=== PATIENT | female | born 1985 | race Caucasian/White ===

== ENCOUNTER 2021-05-04 16:16 | Outpatient (CLI) | payer OTHER, SELFPAY ==
[2021-05-04 16:52] VITALS: BP 113/71; PULSE 74
== END 2021-05-04 16:59 | disposition home or self-care (01) ==
LOC: ANHOBOP 16:55
PROVIDERS: Visit Provider Obstetrics & Gynecology
DX: O41.8X90 Other specified disorders of amniotic fluid and membranes, unspecified trimester, not applicable or unspecified (principal)
CPT/HCPCS: 59025; 84112

== ENCOUNTER 2021-05-23 14:02 | Inpatient (IN) | payer OTHER, SELFPAY ==
[2021-05-23] VITALS (29 sets, daily range): BP systolic 111–138; BP diastolic 56–85; PULSE 53–143; TEMP 35.9–36.8; BMI 30.3
--- NOTE | 2021-05-23 14:45 | LDADM ---
This patient, Carol Sadler, was admitted to Labor/Delivery/Recovery 105 on 05/23/21 at 14:02. Plans for labor, pain management and were discussed with patient. Patient/family oriented to hospital policies and general routines including ID bracelet, bed and alarms, visiting hours, pain management, procedures, bathroom and other care routines, personal items, smoking policy, room service/diet and guest tray routines, security routines, and visiting hours. Patient/Family are encouraged to report perceived risks to care and to ask questions if they do not understand what they are told or what they should do. See OBIX for further documentation.
[2021-05-23] MEDS: OXYTOCIN 30 UNITS/NS 500 ML 30 UNITS/500 ML BAG IV CONT (15:13)
[2021-05-23] MEDS: LACTATED RINGERS 1,000 ML 125 ML IV CONT ×2 (15:14→19:54)
[2021-05-23] MEDS: AMPICILLIN 2 GM/NS 100 ML 2 GM/100 ML BAG IVPB (15:15)
[2021-05-23 15:16] LABS: Basophils Percent Auto 0.2 % (0.2-1.2); Eosinophils Absolute Auto 0.1 K/mm3 (0-0.3); Eosinophils Percent Auto 0.6 % (0-4.4); Hematocrit 36.4 % (37.0-47.0); Hemoglobin 12.2 g/dL (12.0-15.0); Immature Granulocyte Absolute 0.05 K/mm3 (0.00-0.031); Immature Granulocyte Percent A 0.4 % (0-0.5); Lymphocytes Absolute Auto 1.79 K/mm3 (0.9-3.2); Lymphocytes Percent Auto 14.3 % (18.3-44.2); Mean Corpuscular HGB Conc 33.5 g/dl (32-36); Mean Corpuscular Hemoglobin 29.3 pg (26-34); Mean Corpuscular Volume 87.5 fl (80-100); Mean Platelet Volume 10.7 fl (7.4-10.4); Monocytes Absolute Auto 0.7 K/mm3 (0.1-0.6); Monocytes Percent Auto 5.3 % (2.6-8.5); Neutrophils Percent Auto 79.2 % (45.5-73.1); Platelet Count Result 216 k/mm3 (150-375); Red Blood Count 4.16 M/mm3 (4.2-5.4); Red Cell Distribution Width 13.4 % (11.5-14.5); White Blood Count 12.6 K/mm3 (4.5-10.0)
[2021-05-23] MEDS: AMPICILLIN 1 GM/NS 50 ML 1 GM/50 ML BAG IVPB (18:55)
--- NOTE | 2021-05-23 20:55 | WPDOBADMIT ---
Obstetrics - Admit Note Admission Note: 35 y/o here for induction of labor d/t oligohydramnios. record reviewed. No pertinent additions to the history and/or any subsequent changes in the physical findings that are not consistent with the expected course of the were found. Additions to the history and/or subsequent changes in the physical findings follow. None.
--- NOTE | 2021-05-23 22:00 | P.PCNOB_ITS ---
OB - Delivery Note Procedure Delivery date: 05/23/21 Procedure: events: Oligohydramnios and Meconium Stained Fluid (Noted at delivery) Intrapartal events: Extended Tachycardia Induction method: AROM Delivery monitor: external FHT and external uterine Route of delivery: Episiotomy description: None Laceration Description: None Specimen: Yes Quantitative Blood Loss (ml): 154 Anesthesia type: None [place] Baby Date of : 05/23/21 Time of : 21:40 Weeks of gestation at delivery: 40 Infant gender: Female presentation: vertex position: Left Occiput Anterior Placenta delivery description: Spontaneous cord vessel description: Delayed Cord Clamping score one minute: 8 score five minutes: 9 Narrative: Mother and baby in stable condition. Meconium fluid noted at delivery. Cord gasses collected and handed off to staff.
[2021-05-23] MEDS: OXYTOCIN 30 UNITS/NS 500 ML 30 UNITS/500 ML BAG 125 UNITS IV CONT (22:30)
--- NOTE | 2021-05-24 00:05 | OBPPTRN ---
Patient transferred to post room 112# via wheelchair. Support person present. Oriented to unit, room, information board, rooming in, admission packet and security measures. Patient verbalizes understanding.
[2021-05-24 03:14] VITALS: BP 109/66; PULSE 65
[2021-05-24 04:07] LABS: Hematocrit 32.8 % (37.0-47.0)
--- NOTE | 2021-05-24 05:56 | PC.NURSE ---
Pt awake. No complaints at this time. Declines pain medication.
--- NOTE | 2021-05-24 07:43 | PM.OBPNVD ---
OB - PN: Subj Subjective Date/time seen: 05/24/21 07:43 Patient comments: no complaints baby status: doing well OB - PN: Obj Data Labs CBC & Chem 7: 05/24/21 03:52 Labs: Laboratory Results - last 24 hr 05/23/21 05/23/21 05/24/21 14:59 14:59 03:52 WBC 12.6 H RBC 4.16 L Hgb 12.2 11.0 L Hct 36.4 L 32.8 L MCV 87.5 MCH 29.3 MCHC 33.5 RDW 13.4 Plt Count 216 MPV 10.7 H Immature Gran % (Auto) 0.4 Neut % (Auto) 79.2 H Lymph % (Auto) 14.[address] [place] % (Auto) 5.3 Eos % (Auto) 0.6 Baso % (Auto) 0.2 Lymph # (Auto) 1.79 [place] # (Auto) 0.7 H Eos # (Auto) 0.1 Baso # (Auto) 0.0 Abs Immat Gran (auto) 0.05 H Absolute Neuts (auto) 10.0 H Absolute Nucleated RBC 0.0 Nucleated RBC % 0.0 Blood Type O Positive Antibody Screen Negative OB - PN A/P Plan day: 1 Plan: routine care Time Spent With Patient Time: Total time spent is greater than 50% in coordination of care (as documented) at patient's floor/unit and/or counseling patient: Review of Systems Review of Systems: All systems reviewed & are unremarkable except as noted in HPI and below Exam Const: General: cooperative and healthy appearing Psych: Affect: normal affect Attitude: cooperative Thought process: Normal thought process present Thought content: Yes Normal thought content present Insight: Good insight present (Psych) Judgement: Good judgement present (Psych)
[2021-05-24 07:58] VITALS: BP 116/68; PULSE 63
--- NOTE | 2021-05-24 08:25 | PC.NURSE ---
0745--Coty Rivers at bedside to discuss plan of care. No complaints/questions per pt at this time.
[2021-05-24 08:34] LABS: Rapid Plasma Reagin Non-Reactive (NonReactive)
--- NOTE | 2021-05-24 12:07 | PC.NURSE ---
Patient transferred to post room #279 per wheelchair. Support person present. Oriented to unit, room, information board, rooming in, admission packet and security measures. Patient verbalizes understanding.
[2021-05-24 12:20] VITALS: BP 110/88; PULSE 60; RESP 16; TEMP 36.8; O2SAT 100
[2021-05-24 16:00] VITALS: BP 110/60; PULSE 74; RESP 20; TEMP 36.8
[2021-05-24 20:00] VITALS: BP 113/77; PULSE 60; RESP 16; TEMP 36.1; O2SAT 95
[2021-05-25 07:55] VITALS: BP 100/61; PULSE 71; RESP 16; TEMP 36.9; O2SAT 97
--- NOTE | 2021-05-25 07:59 | PM.OBPNVD ---
OB - PN: Subj Subjective Date/time seen: 05/25/21 07:59 Patient comments: no complaints baby status: doing well OB - PN: Obj Data Labs CBC & Chem 7: 05/24/21 03:52 Labs: Laboratory Results - last 24 hr 05/23/21 14:59 RPR Non-reactive OB - PN A/P Plan day: 2 Plan: routine care and discharge home (F/U in 4 weeks) Time Spent With Patient Time: Total time spent is greater than 50% in coordination of care (as documented) at patient's floor/unit and/or counseling patient: Time with patient: less than 15 minutes Review of Systems Review of Systems: All systems reviewed & are unremarkable except as noted in HPI and below Exam Narrative: Exam Narrative: Fundus firm and vaginal flow controlled. No lower ext redness, warmth, or edema. Negative homans. Const: General: comfortable Chest: Breast/axilla inspection: normal inspection of the breasts Resp: Effort & Inspection: normal respiratory effort Cardio: Rate: regular rate GI: GI Palp: Yes Soft to palpation Psych: Appearance: grossly normal Affect: normal affect Attitude: cooperative Thought content: Yes Normal thought content present Judgement: Good judgement present (Psych)
--- NOTE | 2021-05-25 08:20 | PC.NURSE ---
Patient was given the opportunity to view the discharge video Mother & Baby Care, The First Two Weeks and to ask questions. Patient declined viewing the video and has been given the mother/baby guide for home reference.
--- NOTE | 2021-05-25 11:32 | PC.NURSE ---
Mother verbalizes she is able to independently latch with appropriate positioning/alignment. She denies any nipple discomfort, is feeding as required and waking to feed if needed. Infant has had 9 effective feedings in the past 24 hours, and is currently meeting outcomes for weight, output, jaundice and feeding frequencies. Mother asked about number of voids after reviewing the elimination sheet. Mom states she thinks they missed a few voids when had a stool. Mother states she feels confident to continue effective at home. Reviewed transition to breast milk, signs of adequate intake, and engorgement/relief. Instructed to call ICP if intake/output less than required. mom declines questions. Encouraged mom to call with next feeding for assessment. Reviewed community resources on the [facility] website and in the Mom/Baby guide. Information on outpatient services provided. Mother has no further questions at this time.
[2021-05-27 07:47] VITALS: BP 104/69; PULSE 94; RESP 16; TEMP 36.8; O2SAT 98
--- NOTE | 2021-06-22 08:08 | P.DS_ITS ---
DS: Admitting Diagnosis Admitting Diagnosis Induction of labor OB - DS: Summary OB Procedures : None OB Procedures Intrapartum: Spontaneous Vag Delivery OB Procedures: : None Time Spent with Patient Time attestation: Total time spent providing and/or coordinating discharge services: DS: Data Data Completed and Pending Completed studies during hospitalization: Pending at discharge 05/22/21 21:40 Surgical [PTH] Routine Discharge Plan Discharge Attending physician on discharge: Carla Lawson Consulting providers: Carla Lawson ; Liz Rivers Discharging Clinician: Carla Lawson Patient Disposition: Home, Self-Care Activity: pelvic rest Diet: as tolerated Discharge Instructions: Education: Mom and Baby Guide and Preeclampsia Handout Given to: Mother Follow-Up: Call your delivering provider's office for an appointment to be seen in: 4 Weeks Mom and baby should come to the [facility] for the follow-up appointment. Appointment Date/Time: May 27, 2021 at 8:00 am What to expect at your follow-up visit: Physical Assessment Call [phone] if you are unable to keep your appointment time. BREAST CARE: * Wear a snug supportive bra. * For engorgement discomfort: Breast Feeding: * Apply warm moist washcloths * Express milk as needed to relieve engorgement * Wear loose clothing * For sore nipples: * Identify correct latch-on * Apply warm moist washcloths before and after nursing * Air dry nipples after nursing * May apply Lansinoh cream to nipples EPISIOTOMY/PERINEAL CARE: * Until bleeding stops, use your frank bottle after urinating * Change your pad frequently throughout the day * You may take sitz baths several times a day (fill your bathtub with warm water and soak for 20 minutes.) Do NOT bathe in the water * No tub baths until seen by your physician - You may shower ACTIVITY: * Rest as much as possible. * Do not exercise or lift anything heavier than your baby (such as laundry or other children.) * Avoid stairs or driving as much as possible. * Do not put anything into the vagina. No douching, tampons, or sexual activity until seen by physician. NOTIFY PHYSICIAN IF YOU HAVE ANY QUESTIONS OR IF ANY OF THE FOLLOWING SYMPTOMS OCCUR: * If your perineum becomes red, swollen, or more painful than what you have experienced in the hospital. * If your vaginal bleeding becomes foul smelling. * If your vaginal bleeding becomes more heavy than a period or if your bleeding changes from pink to bright red. However, you may pass an occasional walnut- sized clot once or twice for the first week . * If you experience a sharp, shooting pain in you calves. * If you discover a hard, reddened area on your breast or if you experience flu- like symptoms. DIET: * Eat regular, well-balanced meals. * Drink plenty of fluids daily. If , drink to thirst. Stand Alone Forms: General Discharge Information Follow-up/Referrals: Carla Lawson CNM [Certified Nurse Cardiac Monitor] - Discharge Medications: Continued [id number] [id number] mg-mcg-mg Combo Pack 1 pkg PO DAILY RF: 0 Date of admission: 05/23/21 14:02 Primary Care Provider: PHYSICIAN,RETAIL MARKETING COORDINATOR Admitting Provider: Cathy Nicole Attending physician on admission: Cathy Nicole Condition: Stable
== END 2021-05-25 11:04 | disposition home or self-care (01) | DRG 807 ==
LOC: ANHLDR 14:07 → ANHOBPP 05-24 06:22 → ANHOB2 05-24 12:19
PROVIDERS: Advanced Practice Midwife; Admitting Provider Obstetrics & Gynecology; Visit Provider Obstetrics & Gynecology
DX: O41.03X0 Oligohydramnios, third trimester, not applicable or unspecified (principal); Z37.0 Single live birth; O77.0 Labor and delivery complicated by meconium in amniotic fluid; O36.63X0 Maternal care for excessive fetal growth, third trimester, not applicable or unspecified; O62.3 Precipitate labor; Z3A.40 40 weeks gestation of pregnancy
CPT/HCPCS: 36415; 85014; 85018; 85025; 86592; 86850; 86900; 86901; 88307; J0290; J2590; J7120